=== PATIENT | male | born 1955 | race Caucasian/White ===

== ENCOUNTER 2018-06-10 10:11 | Outpatient (CLI) | payer MEDICAID, SELFPAY ==
--- NOTE | 2018-06-10 10:15 | MERGE_ITS ---
*[facility]* *[facility]* [address] [place] [address] Date of study: 06/10/2018 Transthoracic Echocardiography M-mode, complete 2D, complete spectral Doppler, and color Doppler *STUDY CONCLUSIONS* Summary: 1. Left ventricle: The cavity size was moderately dilated. The estimated ejection fraction was 30%. Diffuse hypokinesis. 2. Mitral valve: There was moderate regurgitation. 3. Left atrium: The atrium was mildly dilated. 4. Right ventricle: The cavity size was normal. Wall thickness was normal. Systolic function was normal. 5. Atrial septum: There was a very small patent foramen ovale. 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 6. Pulmonary arteries: Pulmonary systolic pressure was in the range of 20mm Hg to 30mm Hg. 7. Inferior vena cava: The vessel was patent and normal in size. The respirophasic diameter changes were in the normal range (greater than or equal to 50%), consistent with normal central venous pressure. *PATIENT PRESENTATION* Height: 177.8cm ((70in) ) S/D Pressure: 158 / 86 Weight: 99.8kg ((219.5lb) ) BSA: 2.25m^2 Test start time: 10:25 AM. Test stop time: 11:20 AM. PERFORMING Unknown ORDERING Philip Suarez REFERRING Philip Suarez PERFORMING [facility] ENGINE WIPER RT Tarun Moore)(OLGA)DEXTER *PROCEDURE DATA* Procedure information: The patient was identified by two identifiers. This study was interpreted by [facility]. Pertinent images and digital data are archived for permanent storage and are available for subsequent review. Comparison was made to the study of 06/11/2017. Study status: Routine. Transthoracic echocardiography. M-mode, complete 2D, complete spectral Doppler, and color Doppler. A Transthoracic Echocardiogram was performed. Scanning was performed from the parasternal, apical, subcostal, and suprasternal notch acoustic windows. Images were obtained using an [id number] cardiac ultrasound machine. Image quality was adequate. Study completion: The patient tolerated the procedure well. History: PMH: Cardiomyopathy. *CARDIAC ANATOMY* Left ventricle: The cavity size was moderately dilated. The estimated ejection fraction was 30%. Diffuse hypokinesis. The study is not technically sufficient to allow evaluation of LV diastolic function. Aortic valve: Probably trileaflet; mildly thickened, mildly calcified leaflets. Doppler: There was no stenosis. There was no regurgitation. VTI ratio of LVOT to aortic valve: 0.62. Valve area (VTI): 2cm^2. Indexed valve area (VTI): 0.9cm^2/m^2. Peak velocity ratio of LVOT to aortic valve: 0.63. Valve area (Vmax): 2.1cm^2. Indexed valve area (Vmax): 0.9cm^2/m^2. Mean velocity ratio of LVOT to aortic valve: 0.64. Valve area (Vmean): 2.1cm^2. Indexed valve area (Vmean): 0.9cm^2/m^2. Mean gradient (S): 5.3mm Hg. Peak gradient (S): 8.4mm Hg. Aorta: Aortic root: The aortic root was normal in size. Ascending aorta: The ascending aorta was mildly dilated. Mitral valve: Doppler: There was no evidence for stenosis. There was moderate regurgitation. Valve area by pressure half-time: 7.9cm^2. Indexed valve area by pressure half-time: 3.5cm^2/m^2. Peak gradient (D): 7.1mm Hg. Left atrium: The atrium was mildly dilated. Atrial septum: There was a very small patent foramen ovale. 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 Right ventricle: The cavity size was normal. Wall thickness was normal. Systolic function was normal. Pulmonic valve: Doppler: There was no evidence for stenosis. There was no significant regurgitation. Tricuspid valve: Doppler: There was mild regurgitation. Pulmonary artery: Poorly visualized. Pulmonary systolic pressure was in the range of 20mm Hg to 30mm Hg. Right atrium: The atrium was normal in size. Systemic veins: Inferior vena cava: Well visualized. The vessel was patent and normal in size. The respirophasic diameter changes were in the normal range (greater than or equal to 50%), consistent with normal central venous pressure. Baseline ECG: Normal sinus rhythm. Measurements Left ventricle Value 06/11/2017 Reference LV ID, ED, PLAX (H) 7.0 cm 6.7 3.5 - 6.0 LV ID, ES, PLAX (H) 6.2 cm 6.1 2.1 - 4.0 LV PW thickness, ED, PLAX 1.2 cm 1.1 LV end-diastolic volume, 152 ml 237 1-p A2C LV ejection fraction, 1-p 24 % 24 A2C LV end-diastolic volume, 141 ml 183 1-p A4C LV ejection fraction, 1-p 23 % 21 A4C LV e', lateral 0.107 m/sec LV E/e', lateral 13 LV e', medial 0.092 m/sec LV E/e', medial 14 LV e', average 0.099 m/sec LV E/e', average 13 Ventricular septum Value 06/11/2017 Reference IVS thickness, ED, PLAX 0.9 cm 0.9 LVOT Value 06/11/2017 Reference LVOT ID, A-P 2.0 cm 2.0 LVOT area 3.2 cm^2 3.1 LVOT peak velocity, S 0.92 m/sec 0.71 LVOT mean velocity, S 0.71 m/sec LVOT VTI, S 16.8 cm 14.2 LVOT peak gradient, S 3.4 mm Hg LVOT mean gradient, S 2.2 mm Hg 1.4 Stroke volume (SV), LVOT 54 ml DP Stroke index (SV/bsa), 24 ml/m^2 LVOT DP Aortic valve Value 06/11/2017 Reference Aortic valve peak 1.4 m/sec 1.3 velocity, S Aortic valve mean 1.11 m/sec 0.01 velocity, S Aortic valve VTI, S 27.0 cm Aortic mean gradient, S 5.3 mm Hg 4 Aortic peak gradient, S 8.4 mm Hg VTI ratio, LVOT/AV 0.62 0.63 Aortic valve area, VTI 2 cm^2 2 Velocity ratio, peak, 0.63 0.55 LVOT/AV Aortic valve area, peak 2.1 cm^2 1.7 velocity Velocity ratio, mean, 0.64 LVOT/AV Aortic valve area, mean 2.1 cm^2 velocity Aortic valve area/bsa, 0.9 cm^2/m^2 mean velocity Aorta Value 06/11/2017 Reference Aortic root ID, ED 3.2 cm 3.2 Ascending aorta ID, A-P, S 3.5 cm 3.6 Left atrium Value 06/11/2017 Reference LA ID, A-P, ES 4.1 cm LA ID/bsa, A-P 1.8 cm/m^2 <=2.2 LA area, ES, A4C 22.5 cm^2 22 8.8 - 23.4 LA area, ES, A2C 18 cm^2 LA volume/bsa, ES, 1-p A4C 36 ml/m^2 33 LA volume, ES, 2-p 62 ml LA volume/bsa, ES, 2-p 28 ml/m^2 LA/aortic root ratio 1.27 1.38 Mitral valve Value 06/11/2017 Reference Mitral E-wave peak 1.33 m/sec 0.75 velocity Mitral deceleration time (L) 96 ms 184 150 - 230 Mitral pressure half-time 28 ms 53 Mitral peak gradient, D 7.1 mm Hg 2.2 Mitral valve area, PHT, DP 7.9 cm^2 4.1 Pulmonary veins Value 06/11/2017 Reference Pulmonary vein peak 0.63 m/sec velocity, S Pulmonary vein peak 0.35 m/sec velocity, D Pulmonary vein velocity 1.79 ratio, peak, S/D Tricuspid valve Value 06/11/2017 Reference Tricuspid regurg peak 2.3 m/sec 2.8 velocity Tricuspid peak RV-RA 20.7 mm Hg 31.8 gradient Right atrium Value 06/11/2017 Reference RA area, ES, A4C 13.1 cm^2 13.5 8.3 - 19.5 Legend: (L) and (H) jesus values outside specified reference range. I have personally reviewed the images and have reviewed and edited the reported findings. Electronically signed by Truong Monroy MD 06/10/2018 15:56
== END 2018-06-10 10:31 ==
PROVIDERS: PCP General Practice; Visit Provider Student in an Organized Health Care Education/Training Program
DX: I42.9 Cardiomyopathy, unspecified (principal); I34.0 Nonrheumatic mitral (valve) insufficiency; I25.3 Aneurysm of heart
CPT/HCPCS: 93306

== ENCOUNTER 2019-02-13 08:46 | Emergency (ER) | payer MEDICAID, SELFPAY ==
[2019-02-13] VITALS (14 sets, daily range): BP systolic 123–181; BP diastolic 69–95; PULSE 102–116; RESP 18–27; TEMP 36.5; O2SAT 95–98
--- NOTE | 2019-02-13 08:55 | DI.RAD_ITS ---
SYMPTOM/DIAGNOSIS: SOB PA AND LATERAL CHEST: Increased interstitial markings are noted in the lungs and there is some prominence of the upper lobe vasculature. Wetness of the fissures is demonstrated. There is no pleural effusion. SUMMARY: Findings consistent with congestive failure.
--- NOTE | 2019-02-13 08:59 | ED.GENADUL_ITS ---
Discharge Plan Disposition Patient Disposition: HOME Condition: Stable Discharge Details Chief Complaint: SOB Clinical Impression: Breath, shortness, Congestive heart failure Primary Care Provider: Chay Ferguson ED Provider: Truong Stephenson Home Meds and New Rx's Prescriptions: New furosemide [Lasix] 40 mg tablet 40 mg PO DAILY Qty: 14 RF: 0 Continued losartan 25 mg tablet 25 mg PO DAILY Qty: 30 RF: 11 furosemide [Lasix] 20 MG tablet 10 mg PO DAILY RF: 0 metoprolol succinate 100 mg tablet extended release 24 hr 200 mg PO DAILY Qty: 180 RF: 3 aspirin [Aspirin Low Dose] 81 mg Tablet,Delayed Release (Dr/Ec) 81 mg PO DAILY RF: 0 magnesium 30 mg Tablet 60 mg PO BID RF: 0 cod liver oil Capsule 3 cap PO DAILY RF: 0 coenzyme Q10 [CoQ-10] 100 mg Capsule 100 mg PO DAILY RF: 0 Probiotic 5 billion cell Capsule, Sprinkle 1 cap PO DAILY RF: 0 Heartdrops 1 ml PO TID RF: 0 Discharge Instructions Instructions: Heart Failure (ED) Additional Instructions: Your symptoms are due to your congestive heart failure you have an appointment with Dr. Ferguson next 02/20 at 10am. Discuss with him about continuing the lasix as he will need to give you a new prescription at that time if you feel more ill, have worsening shortness of breath or chest pain return to the emergency department Medical Decision Making 64 yo male with hx of HFrEF with last echo documented in our chart by cardiology note in May showing EF of 30%, who intermittently smokes denies alcohol or drug use, and states he has been off lasix for months, comes in with sh ortness of breath worsening since Sunday. He denies fevers, chest pain/pressure, cough. He states laying flat makes his symptoms worse. He is in no distress speaking in full sentences, does have mild HTN on arrival with mild sinus tachycardia and o2 saturation on room air of 95%. He has diminished breath sounds at the bases, no calf pain, mild pitting edema of the ankles bilaterally. He has no pericardial effusion on bedside u/s with reduced EF on visual inspection of LV, and has diffuse B lines of both lungs as well. His history, symptoms and exam/ultrasound findings are consistent with pulmonary edema so will give a dose of lasix IV. Will also eval for possible nstemi with troponin and obtain xray and lab work. he has no pleuritic pain, no evidence of dvt or recent immobilization and his findings today are consistent with pulmonary edema so doubt PE at this time labs unremarkable and he remains stable, xray confirms pulmonary edema, no infiltrates. He has urinated over 700cc since getting the lasix and feels significantly better, is ambulating without repsiratory distress and o2 saturations of 95% on room air. I had a discussion with the patient about observation admission vs d/c and pcp f/u and he decided since he feels better and has reassuring vitals that he would like to try outpatient management and return if worsening. Appt made with his pcp Dr. Ferguson for next at 10am Differential Diagnosis chf, pna, nstemi Medical Records Medical records reviewed: Yes I reviewed the patient's medical records. Imaging Data Radiologic Study: Attestation: I personally reviewed and interpreted this imaging study as follows: Imaging: X-Ray Radiologist's impression: congestive heart failure Lab Data Lab results reviewed: Yes I reviewed the patient's lab results. ECG Data Attestation: I personally reviewed and interpreted this ECG (s) as follows: Prior ECG tracings: not available for review Interpretation: sinus rhythm, rate of 115, pr 164, qtc 465 HPI General Mode of arrival: ambulatory . Date/Time Provider Initiated Documentation: 02/13/19 08:47 . Limitations to Documentation: no limitations . Information obtained by: patient . History of Present Illness 64 year old M presents to the emergency department with the chief complaint of shortness of breath, described as moderate, Patient started experiencing this day(s) (4) and it has been constant. Rest improves symptom(s), Other factors that worsen symptoms (laying flat) . Patient notes no other symptoms.. Patient di d receive the following treatments prior to arrival, none Related Data Home Medications Medication Instructions Recorded Confirmed furosemide [Lasix] 10 mg PO DAILY tab-cap 12/06/17 06/12/18 losartan 25 mg tablet 25 mg PO DAILY #30 tab 06/12/18 02/13/19 metoprolol succinate 100 mg 200 mg PO DAILY #180 tab-cap 01/06/19 02/13/19 tablet,extended release 24 hr Heartdrops 1 ml PO TID 02/13/19 02/13/19 Probiotic 1 cap PO DAILY 02/13/19 02/13/19 aspirin [Aspirin Low Dose] 81 mg PO DAILY 02/13/19 02/13/19 cod liver oil 3 cap PO DAILY 02/13/19 02/13/19 coenzyme Q10 [CoQ-10] 100 mg PO DAILY 02/13/19 02/13/19 furosemide [Lasix] 40 mg PO DAILY #14 tab 02/13/19 magnesium 60 mg PO BID 02/13/19 02/13/19 Previous Rx's Medication Instructions Recorded losartan 25 mg tablet 25 mg PO DAILY #30 tab 06/12/18 metoprolol succinate 100 mg 200 mg PO DAILY #180 tab-cap 01/06/19 tablet,extended release 24 hr furosemide [Lasix] 40 mg PO DAILY #14 tab 02/13/19 Allergies Allergy/AdvReac Type Severity Reaction Status Date / Time spironlactone AdvReac gynecomasti Uncoded 06/12/18 12:47 a General Stated Complaint: SOB HOPE: 2 Review of Systems Review of Systems All systems reviewed & are unremarkable except as noted in HPI and below Constitutional Denies chills, Denies fever(s) and Denies weakness Cardiovascular Denies chest pain Respiratory Denies cough Gastrointestinal Denies abdominal pain, Denies nausea and Denies vomiting Musculoskeletal Denies joint swelling Neurologic Denies weakness Endocrine Denies heat intolerance [facility] Social History (Updated 06/12/18 @ 12:46 by Teresa Schneider RN) Smoking/Tobacco Use Status: Current every day Tobacco Type: cigarettes Smoking cigarettes per day: 4 Alcohol Intake: never Substance use type: does not use Do you feel safe at home: Yes Do you feel safe in your relationship?: Yes Exam Const General: no acute distress Orientation: alert [facility] Head: normal to inspection Ears: external ears normal General nose exam: external nose normal Mouth: moist mucous membranes Eyes General: appearance normal, both eyes and all related structures Neck Neck: normal visual inspection Resp Effort & Inspection: normal respiratory effort and able to speak in complete sentences Cardio Rate: tachycardic Skin General skin exam: no rashes or lesions noted Neuro General: alert and oriented x3 Extrem General: normal to inspection Psych Mental Status: mental status grossly normal Course Vital Signs Temperature 36.5 C 02/13/19 08:51 Pulse 116 H 02/13/19 08:51 Respiratory Rate 25 H 02/13/19 08:51 Blood Pressure 181/95 H 02/13/19 08:51 Pulse Oximetry 95 02/13/19 08:51 Temperature 36.5 C 02/13/19 08:51 Temperature Source Skin 02/13/19 08:51 Pulse 116 H 02/13/19 08:51 Respiratory Rate 25 H 02/13/19 08:51 Respiratory Effort 02/13/19 08:56 Blood Pressure 181/95 H 02/13/19 08:51 Pulse Oximetry 95 02/13/19 08:51 Oxygen Delivery Method Room Air 02/13/19 08:51 Oxygen Flow Rate 0 02/13/19 08:51 Pain Level 2 02/13/19 08:51
[2019-02-13] MEDS: Furosemide 40 MG/4 ML VIAL IVP (09:10)
[2019-02-13 09:18] LABS: Abs Immature Grans 0.01 k/cumm (0.0-0.09); Absolute Basophil Count 0.02 k/cumm (0.0-0.2); Absolute Eosinophil Count 0.09 k/cumm (0.0-0.7); Absolute Lymphocyte Count 0.99 k/cumm (1.2-3.4); Absolute Monocyte Count 0.54 k/cumm (0.11-0.7); Absolute Neutrophil Count 7.34 k/cumm (1.2-6.7); Basophils % 0.2; HCT 43.2 % (40.0-50.0); HGB 13.8 g/dL (13.5-17.5); Immature Grans % 0.1; Mean Corp. HGB Concentration 31.9 g/dL (32.0-36.0); Mean Corpuscular Hemoglobin 30.1 pg (27.0-33.0); Mean Corpuscular Volume 94.3 fL (80-95); Mean Platelet Volume 10.4 fL (8.0-11.0); Neutrophils % 81.7; Platelet Count 268 x1000/uL (130-400); RBC 4.58 m/cumm (4.50-6.00); RBC Distribution Width 14.9 % (11.8-14.1); White Blood Cell Count 8.99 k/cumm (4.4-10.8)
[2019-02-13] MEDS: Normal Saline Flush 10 ML SYR IVP (09:23)
[2019-02-13 09:29] LABS: PTT Activated 27.9 sec (21.0-31.4); Prothrombin Time 9.7 sec (9.3-11.0)
[2019-02-13 09:37] LABS: ALT 35 U/L (12-78); AST 15 U/L (15-37); Albumin 3.8 g/dL (3.4-5.0); Alkaline Phosphatase 74 U/L (46-116); Anion Gap 8.1 mmol/L (3-11); BUN 13 mg/dL (7-18); Bilirubin, Total 0.4 mg/dL (0.2-1.0); CO2 28.9 mmol/L (21.0-32.0); CREATININE 1.23 mg/dL (0.70-1.30); Calcium 9.2 mg/dL (8.5-10.1); Chloride 103 mmol/L (98-107); Estimated GFR 59.24 (mL/min/1.73m2); Glucose 122 mg/dL (70-100); Magnesium 2.4 mg/dL (1.8-2.4); NT-proBNP 2921 pg/mL; Sodium 140 mmol/L (136-145); Total Protein 8.8 g/dL (6.4-8.2)
[2019-02-13 09:39] LABS: Troponin I < 0.05 ng/mL (0.00-0.06)
--- NOTE | 2019-02-13 10:18 | NUR.NOTE ---
Nursing Note: Appt made for patient with Dr. Ferguson next week, Feb 20 @ 10:[address]
--- NOTE | 2019-02-13 10:21 | NUR.NOTE ---
walked around ER -O2 sat 96%, HR 108-112. states he is feeling much better. is getting air. Nursing Note:
== END 2019-02-13 10:26 | disposition home or self-care (01) ==
PROVIDERS: Emergency Provider Emergency Medicine; PCP General Practice
DX: R06.02 Shortness of breath (principal); I50.9 Heart failure, unspecified; F17.210 Nicotine dependence, cigarettes, uncomplicated
CPT/HCPCS: 36415; 80053; 93005; 96374; 99285; 71046; 83735; 83880; 84484; 85025; 85610; 85730; 93010; J1940

== ENCOUNTER 2020-05-25 10:28 | Emergency (ER) | payer MEDICARE, MEDICAID, SELFPAY ==
[2020-05-25] VITALS (7 sets, daily range): BP systolic 140; BP diastolic 90; PULSE 75–82; RESP 15–25; TEMP 36.6; O2SAT 98–100
--- NOTE | 2020-05-25 11:00 | RT.EKG_ITS ---
APPROVED REPORT Exam: Resting ECG Patient Location: E HR:79 bpm ECG Measurements Heart Rate 79 AXIS SC 175 P 56 QRSd 111 QRS -32 QT 384 T 172 QTc 440 Conclusion Sinus rhythm...normal P axis, V-rate 60- 99 Probable left atrial enlargement Left axis deviation anterolateralST dep, T neg, I aVL V2-V6, no comparison
--- NOTE | 2020-05-25 11:00 | DI.RAD_ITS ---
EXAM: XR CHEST 2V PA LATERAL CLINICAL HISTORY: Rule out CVA TECHNIQUE: 2D digital imaging was performed. COMPARISON: CR XR CHEST 2V PA LATERAL from 02/13/2019 FINDINGS: MEDIASTINUM: Normal. HEART: Mild cardiomegaly. PULMONARY VASCULATURE: Normal. LUNGS: Clear. PLEURAL SPACE: No pleural effusion or pneumothorax. BONE:Within normal limits for the patient's age. OTHER FINDINGS:Normal. IMPRESSION: No acute pulmonary findings. DATA REPOSITORY: RADIATION DOSE DELIVERED:
--- NOTE | 2020-05-25 11:00 | DI.CT_ITS ---
EXAM: CT BRAIN NECK CTA CLINICAL HISTORY: Left eye visual field cut. TECHNIQUE: Imaging Protocol: Axial CT angiography was performed with multi-slice acquisition and mu lti-planar and/or 3D reconstructions. CONTRAST MATERIAL: Intravenous: Omnipaque 350 Contrast volume:85 mL COMPARISON: No exams were available for comparison FINDINGS: CT Head W/O: 50 mL of Omnipaque 350 was administered intravenously prior to the CT head examination. Ventricles and Extra axial spaces: Normal in size and morphology for the patient's age. Hemorrhage: None. Cerebral parenchyma: Normal. Midline shift: None. Brainstem/Cerebellum: Normal. Calvarium: Normal. Visualized Paranasal sinuses/Mastoids: Clear. Soft Tissues: Unremarkable. CTA Brain W: Internal Carotid Arteries: Petrous: Complete occlusion. Cavernous: Complete occlusion. Cerebral: Complete occlusion. Anterior Cerebral Arteries: Right: No aneurysm, occlusion or significant stenosis. The right ROGERS appears to receive blood flow v ia the anterior communicating artery. Left: No aneurysm, occlusion or significant stenosis. Middle Cerebral Arteries: Right: No aneurysm, occlusion or significant stenosis. The right MCA appears to receive blood flow v ia the anterior communicating artery. Left: No aneurysm, occlusion or significant stenosis. Posterior cerebral Arteries: Right: No aneurysm, occlusion or significant stenosis. Left: No aneurysm, occlusion or significant stenosis. Vertebral Arteries: Right: No aneurysm, occlusion or significant stenosis. Left: No aneurysm, occlusion or significant stenosis. Basilar Artery: No aneurysm, occlusion or significant stenosis. CTA Neck W: Common Carotid: Right: Atherosclerosis. No evidence of occlusion. 30-40 percent narrowing of the distal right comm on carotid artery. Left: No dissection, occlusion or significant stenosis. Atherosclerosis. Less than 30 percent narro wing of the distal left common carotid artery. External Carotid: Right: No occlusion or significant stenosis. Left: No occlusion or significant stenosis. Internal Carotid: Right: Complete occlusion of the right internal carotid artery just distal to the carotid bifurcatio n. Atherosclerosis. Left: Atherosclerosis. There is approximately 70 percent narrowing the internal carotid artery just distal to the bifurcation. Distally, the caliber of the left internal carotid artery is normal. Vertebral Artery: Right: No dissection, occlusion or significant stenosis. Left: No dissection, occlusion or significant stenosis. Lung Apices: Emphysematous changes in the lungs. Bones: Moderate degenerative changes in the cervical spine. Reversal of the normal cervical lordosis centered at C5-C6. Soft Tissues: Normal. IMPRESSION: 1. Complete occlusion of the right internal carotid artery from just distal to the carotid bifurcatio n to its bifurcation into the anterior and middle cerebral arteries. 2. Short segment of significant stenosis of the left internal carotid artery just distal to the carot id bifurcation. 3. Mild stenosis involving the distal right common carotid artery. 4. Unremarkable noncontrast CT Head. 5. Findings were discussed with the emergency department on the date of the examination. RADIATION DOSE DELIVERED: 1,298.62mGy.cm Total DLP DATA REPOSITORY: All CT scans at this facility are submitted to the National Radiology Data Registry (NRDR) Dose Index Registry (DIR) with the [employer] (A[employer]). RADIATION OPTIMIZATION: All CT scans at this facility use at least one of these dose optimization te chniques: automated exposure control; mA and/or kV adjustment per patient size (includes targeted exa ms where dose is matched to clinical indication); or iterative reconstruction.
--- NOTE | 2020-05-25 11:02 | ED.GENADUL_ITS ---
Discharge Plan Disposition Patient Disposition: HOME Condition: Stable Discharge Details Clinical Impression: Carotid artery stenosis Primary Care Provider: Gilles Barreto ED Provider: Ras Serrano Home Meds and New Rx's Prescriptions: New clopidogrel [Plavix] 75 mg tablet 75 mg PO DAILY Qty: 30 RF: 0 Continued Adult 50 Plus Probiotic 4 billion cell capsule 4,000 mmu cells PO DAILY RF: 0 zinc picolinate 25 mg capsule 50 mg PO RF: 0 cholecalciferol (vitamin D3) 1,000 unit/drop drops PO DAILY RF: 0 losartan 25 mg tablet 25 mg PO DAILY Qty: 90 RF: 3 metoprolol succinate 100 mg tablet extended release 24 hr 200 mg PO DAILY Qty: 180 RF: 3 Probiotic 5 billion cell capsule, sprinkle 1 cap PO DAILY RF: 0 coenzyme Q10 [CoQ-10] 100 mg capsule 100 mg PO DAILY Qty: 90 RF: 3 furosemide [Lasix] 40 mg tablet 40 mg PO DAILY Qty: 90 RF: 1 magnesium 30 mg Tablet 60 mg PO BID RF: 0 cod liver oil Capsule 3 cap PO DAILY RF: 0 Heartdrops 1 ml PO TID RF: 0 Discharge Instructions Additional Instructions: You have declined further work-up at this time. I discussed your case with our neurologist Dr. Michelle Crawford. She will see you in clinic at 215 on this . Please begin daily 81 mg of aspirin. Please also begin 30 days of the prescribed Plavix 75 mg daily. Continue efforts to decrease tobacco use. Return to the emergency department for any acute concerns. Medical Decision Making 65-year-old male smoker with a history of hypertension presents on referral from [facility]. He presented with left nasal aspect vision changes over months time. He was found to have retinal artery occlusion. His dilated ophthalmic exam was otherwise reported to be unremarkable. Patient referred to ED. I spoke pressure 140/90, left thigh nasal aspect visual field cut, otherwise unremarkable exam.. And she has risk factors for stroke, consideration for further work-up today is appropriate. IV access was established, labs obtained, patient referred for screening EKG, chest x-ray, CT scan of the neck and brain with and without IV contrast. Laboratories are reassuring. Noted BUN 24, creatinine 1.4. CT angiogram reveals right ICA 100% occlusion with reconstitution of the MCA and RCA. 70% left ICA occlusion. No acute intracranial findings. Chest x-ray unremarkable. Findings and presentation discussed with Dr. Crawford. We discussed further work-up for the patient which he has declined at this time. Given his lack of willingness for out of area consultation, we will start the patient on aspirin and Plavix, he will see Dr. Crawford in clinic this . He understands need to decrease smoking. He states that he may or may not begin the prescribed Plavix as he feels there are some herbal alternatives that better suit his lifestyle. Lab Data Lab results reviewed: Yes I reviewed the patient's lab results. Labs: Laboratory Results - last 24 hr 05/25/20 05/25/20 05/25/20 11:15 11:15 11:15 WBC 6.28 RBC 4.35 L Hgb 13.4 L Hct 41.3 MCV 94.9 MCH 30.8 MCHC 32.4 RDW 14.2 H Plt Count 260 MPV 9.7 Immature Gran % 0.3 Neutrophils % 70.3 Lymphocytes % 17.4 Monocytes % 9.4 Eosinophils % 2.1 Basophils % 0.5 Nucleated RBC % 0 Absolute Neutrophils 4.42 Absolute Lymphocytes 1.09 L Absolute Monocytes 0.59 Absolute Eosinophils 0.13 Absolute Basophils 0.03 PT 10.0 INR 1.0 APTT 27.7 H Sodium 139 Potassium 3.9 Chloride 103 Carbon Dioxide 29.1 Anion Gap 6.9 BUN 24 H Creatinine 1.42 H Estimated GFR/1.73 m2 50.04 Glucose 115 H Calcium 9.0 Magnesium 2.3 Total Bilirubin 0.4 AST 16 ALT 25 Alkaline Phosphatase 67 Troponin I < 0.05 Total Protein 8.0 Albumin 3.6 HPI General Mode of arrival: ambulatory . Date/Time Provider Initiated Documentation: 05/25/20 10:51 . Limitations to Documentation: no limitations . Information obtained by: patient . History of Present Illness 65 year old M presents to the emergency department with the chief complaint of Referred from [facility] for left retinal artery occlusion, left visi, described as moderate, Quality is described as constant, and is localized to the eyes and left. Patient reports no radiation. Patient started experiencing this week(s) and it has been constant. No relieving factors improve symptom(s), No exacerbating factors reported . Patient notes denies chest pain, fever/chills, headaches, syncope and weakness. Patient did receive the following treatments prior to arrival, none Related Data Home Medications Medication Instructions Recorded Confirmed Heartdrops 1 ml PO TID 02/13/19 05/25/20 cod liver oil 3 cap PO DAILY 02/13/19 05/25/20 magnesium 60 mg PO BID 02/13/19 05/25/20 cholecalciferol (vitamin D3) unit PO DAILY ml 06/10/19 06/10/19 lactobacillus combination no.9 4 4,000 mmu cells PO DAILY 06/10/19 05/25/20 billion cell capsule zinc picolinate 25 mg capsule 50 mg PO cap 06/10/19 06/10/19 Lactobacil.acidophilus-Bifido.animalis 1 cap PO DAILY 06/16/19 05/25/20 5 billion cell sprinkle capsule coenzyme Q10 100 mg capsule 100 mg PO DAILY #90 cap 06/16/19 05/25/20 losartan 25 mg tablet 25 mg PO DAILY #90 tab 06/16/19 05/25/20 metoprolol succinate 100 mg 200 mg PO DAILY #180 tab-cap 06/16/19 05/25/20 tablet,extended release 24 hr furosemide 40 mg tablet 40 mg PO DAILY #90 tab 04/26/20 05/25/20 clopidogrel [Plavix] 75 mg PO DAILY #30 tab 05/25/20 Previous Rx's Medication Instructions Recorded coenzyme Q10 100 mg capsule 100 mg PO DAILY #90 cap 06/16/19 losartan 25 mg tablet 25 mg PO DAILY #90 tab 06/16/19 metoprolol succinate 100 mg 200 mg PO DAILY #180 tab-cap 06/16/19 tablet,extended release 24 hr furosemide 40 mg tablet 40 mg PO DAILY #90 tab 04/26/20 clopidogrel [Plavix] 75 mg PO DAILY #30 tab 05/25/20 Allergies Allergy/AdvReac Type Severity Reaction Status Date / Time spironlactone AdvReac gynecomasti Uncoded 05/25/20 10:54 a General Stated Complaint: CVA/TIA HOPE: 3 Review of Systems Narrative: No difficulty with speech, gait, no facial droop. No clumsiness. No weakness. 6 systems reviewed and otherwise negative. [facility] Family History Mother , age 84 No problems noted. Father No problems noted. Brother No problems noted. Brother No problems noted. Son No problems noted. Maternal Grandfather , age 73 No problems noted. Paternal Grandfather , age 51 No problems noted. Maternal Grandmother , age 70 No problems noted. Paternal Grandmother , age 35 No problems noted. Social History Smoking/Tobacco Use Status: Current every day Tobacco: How many years used: 40 Quit status: considering quitting Second Hand Exposure: Yes Smoking risk assessment performed?: Yes Alcohol Intake: never Drug use: Never Substance use type: does not use Caregiver/Support person: Yes Household members: spouse Housing: house Communication Needs: None Pets and animals: Yes Pets and animals: dog(s) Sexually active: No Do you think of yourself as: straight/heterosexual Current gender identity: male What is your relationship status?: How often do you talk on the phone with friends or family?: once per week How often do you get together with friends or relatives?: decline to answer How often do you attend amish or congregational services?: decline to answer Do you belong to any clubs or organized social groups?: no Panel score (0-1 are the most socially isolated patients): 1 What type of physical activity do you participate in: other Duration: > 90 minutes/day Frequency: 1-2 times per week Cynthia/Protestant: None Special cynthia needs: No Seatbelt use: always Drive intox or ride w/intox boat driver: No Do you feel safe at home: Yes Do you feel safe in your relationship?: Yes Exam Narrative Exam Narrative: GEN: awake, alert, oriented 3. Pleasant, well groomed, interactive. HEAD: Normocephalic, atraumatic ENT: Mucous membranes moist, oropharynx unremarkable, External ear exam unremarkable EYES: PERRL, EOMI. visual norman with visual field cut primarily left inferior nasal, partial left superior nasal. Funduscopic exam inadequate NECK: Full ROM, no PIPE, no menigismus CHEST/RESP: Nontender, clear to auscultation bilateral, no wheeze/rhonchi/rales CARDIOVASCULAR: RRR, no murmur, rub ashli. 2+ Rad pulse bilateral ABDOMEN: Soft, nontender, no mass. +Bowel sounds EXT: Full ROM, no edema, no rash Neuro: Grossly normal neurologic exam, conversant, interactive. Psych: Speech fluent, thoughts congruent, affect normal Course Vital Signs Vital signs: Vital Signs Temperature 36.6 C 05/25/20 10:35 Pulse 76 05/25/20 10:35 Respiratory Rate 15 05/25/20 10:35 Blood Pressure 140/90 05/25/20 10:35 Pulse Oximetry 100 05/25/20 10:35 Temperature 36.6 C 05/25/20 10:35 Temperature Source Temporal Artery Scan 05/25/20 10:35 Pulse 76 05/25/20 10:35 Respiratory Rate 15 05/25/20 10:35 Respiratory Effort Non-Labored 05/25/20 10:44 Blood Pressure 140/90 05/25/20 10:35 Blood Pressure Position Sitting 05/25/20 10:35 Pulse Oximetry 100 05/25/20 10:35 Oxygen Delivery Method Room Air 05/25/20 10:35 Oxygen Flow Rate 0 05/25/20 10:35 Pain Level 2 05/25/20 10:35
[2020-05-25 11:24] LABS: Abs Immature Grans 0.02 10^3/uL (0.0-0.06); Absolute Basophil Count 0.03 10^3/uL (0.0-0.2); Absolute Eosinophil Count 0.13 10^3/uL (0.0-0.7); Absolute Lymphocyte Count 1.09 10^3/uL (1.2-3.4); Absolute Monocyte Count 0.59 10^3/uL (0.1-0.8); Absolute Neutrophil Count 4.42 10^3/uL (1.2-6.7); Basophils % 0.5; Eosinophils % 2.1; HCT 41.3 % (40.0-50.0); HGB 13.4 g/dL (13.5-17.5); Immature Grans % 0.3; Lymphocytes % 17.4; MCH 30.8 pg (27.0-33.0); MCHC 32.4 % (32.0-36.0); MCV 94.9 fL (80-95); MPV 9.7 fL (8.0-11.0); Monocytes % 9.4; Neutrophils % 70.3; Nucleated RBC 0 %; Platelet Count 260 10^3/uL (130-400); RBC 4.35 10^6/uL (4.36-5.78); RDW 14.2 % (11.8-14.1); RDW-SD 49.4 fL; WBC 6.28 10^3/uL (4.4-10.8)
[2020-05-25] MEDS: Normal Saline 1,000 ML 125 ML IV (11:26)
[2020-05-25 11:42] LABS: PTT Activated 27.7 sec (21.0-27.5)
[2020-05-25 11:55] LABS: ALT 25 U/L (16-63); AST 16 U/L (15-37); Albumin 3.6 g/dL (3.4-5.0); Alkaline Phosphatase 67 U/L (46-116); Anion Gap 6.9 mmol/L (3-11); BUN 24 mg/dL (7-18); Bilirubin, Total 0.4 mg/dL (0.2-1.0); CO2 29.1 mmol/L (21.0-32.0); CREATININE 1.42 mg/dL (0.70-1.30); Chloride 103 mmol/L (98-107); Estimated GFR 50.04 (mL/min/1.73m2); Glucose 115 mg/dL (74-106); Magnesium 2.3 mg/dL (1.8-2.4); Potassium 3.9 mmol/L (3.5-5.1); Sodium 139 mmol/L (136-145); Troponin I < 0.05 ng/mL (<0.06)
[2020-05-25] MEDS: Omnipaque 350 MG/ML 100 ML BTL IJ (12:13)
[2020-05-25] MEDS: Normal Saline - Diluent 50 ML VIAL IV (12:15)
== END 2020-05-25 13:45 | disposition home or self-care (01) ==
PROVIDERS: Emergency Provider Emergency Medicine; PCP Family Medicine
DX: I65.23 Occlusion and stenosis of bilateral carotid arteries (principal); H34.232 Retinal artery branch occlusion, left eye; I10 Essential (primary) hypertension; F17.210 Nicotine dependence, cigarettes, uncomplicated
CPT/HCPCS: 36415; 36416; 70496; 70498; 80053; 82962; 93005; 96360; 96361; 99285; 71046; 83735; 84484; 85025; 85610; 85730; 93010; J3490